=== PATIENT | female | born 1995 | race Two or more races ===

== ENCOUNTER 2020-10-06 10:13 | Emergency (ER) | payer OTHER ==
[~2020-10-06] VITALS: Ht 157.5 cm; Wt 61.2 kg
[2020-10-06] MEDS ORDERED: VISTARIL25 MG PO (11:38)
== END 2020-10-06 11:44 | disposition home or self-care (01) ==
LOC: ER 10:13
DX: R53.81 Other malaise (principal); F06.4 Anxiety disorder due to known physiological condition

== ENCOUNTER 2023-12-10 18:09 | Emergency (ER) | payer OTHER ==
[~2023-12-10] VITALS: Ht 157.5 cm; Wt 63.5 kg
[~2023-12-10 18:09] MED LIST: VISTARIL25 MG PO
[2023-12-10] MEDS ORDERED: CEFTRIAXONE SODIUM 1,000 MG VIAL IM ONE (22:30)
[2023-12-10] MEDS ORDERED: METHYLPREDNISOLONE SOD SUCC 125 MG VIAL IM ONE (22:30)
[2023-12-10] MEDS ORDERED: ALBUTEROL SULFATE 3 ML/2.5 MG AMPUL.NEB IH SCH (22:30)
== END 2023-12-11 00:26 | disposition home or self-care (01) ==
LOC: ER 18:09
DX: J06.9 Acute upper respiratory infection, unspecified (principal); Z20.822 Contact with and (suspected) exposure to COVID-19